=== PATIENT | female | born 1935 | race Caucasian/White ===

== ENCOUNTER 2017-10-25 19:09 | Inpatient (IN) | payer OTHER ==
[~2017-10-25 19:09] MED LIST: ATROPINE 1 MG/10 ML SYRINGE; CA CHLORIDE 10% 10 ML SYRINGE; DOPamine-D5W 1.6 MG/ML 250 ML; EPINEPHrine 0.1 MG/ML SYG; NA BICARBONATE 8.4% 50 ML SYG
[2017-10-25 19:35] LABS: ABNORMAL IP MESSAGE 1; HEMATOCRIT 44.7 % (37.0-47.0); HEMOGLOBIN 13.1 g/dl (12.0-16.0); MEAN CORPUSCULAR HEMOGLOBIN 29.8 pg (29.0-33.0); MEAN CORPUSCULAR HGB CONC 29.3 g/dl (32.0-37.0); MEAN CORPUSCULAR VOLUME 101.8 fl (82.0-101.0); MEAN PLATELET VOLUME 11.4 fl (7.4-10.4); NUCLEATED RED BLOOD CELLS% 0.8 /100WBC (0.0-0.0); PLATELET COUNT 110 10^3/UL (140-415); RED BLOOD COUNT 4.39 10^6/ul (4.20-5.40); RED CELL DISTRIBUTION WIDTH 14.9 % (11.5-14.5)
[2017-10-25 19:35] LABS: WHITE BLOOD COUNT 14.9 10^3/ul (4.8-10.8)
[2017-10-25 19:36] LABS: ADD MAN DIFF? YES; POSITIVE DIFF @See below
[2017-10-25] MEDS ORDERED: DOPamine-D5W 1.6 MG/ML 0 ML (19:48)
[2017-10-25] MEDS: PROPOFOL 100 ML IV (20:00)
[2017-10-25] MEDS: ACETAMINOPHEN 650 MG SUPP PR (20:00)
[2017-10-25] MEDS: SOD CHLORIDE 0.9% 1,000 ML IV ×3 (20:00→23:00)
[2017-10-25 20:03] LABS: ANISOCYTOSIS 2+ (0-0); BAND NEUTROPHILS #M 1.6 10^3/ul (0.0-0.6); BAND NEUTROPHILS % (M) 11 % (0-4); BURR CELLS 1+ (0-0); ERYTHROBLAST% (NRBC) (M) 1 % (0-0); GIANT THROMBO% (M) 3 % (0-0); LYMPHOCYTES #M 2.8 10^3/ul (0.8-2.9); LYMPHOCYTES % (M) 19 % (15-51); METAMYELOCYTES #M 0.4 10^3/ul (0.0-0.0); METAMYELOCYTES %M 3 % (0-0); MICROCYTOSIS 2+ (0-0); MONOCYTES % (M) 7 % (0-11); PLATELET ESTIMATE NORMAL; POIKILOCYTOSIS 2+ (0-0); POLYCHROMASIA 1+ (0-0); SEG NEUT #M 9.2 10^3/ul (1.6-7.5); SEGMENTED NEUTROPHILS (M) % 60 % (39-77); SMUDGE%M 6 % (0-0)
[2017-10-25] MEDS: DOPamine-D5W 1.6 MG/ML 250 ML IV (20:06)
[2017-10-25] MEDS: SODIUM CHLORIDE 0.9% 500 ML BAG IV* (20:15)
[2017-10-25 20:19] LABS: AADO2 Arterial 552.6 mmHg (7.0-24.0); Arterial Base Excess -13.5 mmol/L (-3.0-3); Arterial Blood Gas Oxygen Sat 97.2 mmHG (95.0-100.0); Arterial Fraction of Oxyhgb 95.7 % (93.0-99.0); Arterial MetHb 0.5 % (0.0-1.5); Arterial Total Hemglobin 13.6 g/dl (12.0-18.0); Arterial pCO2 38.5 mmhg (35-45); MODE VENT - AC; Site Right Brachial
[2017-10-25] MEDS ORDERED: NORepinephrine 8MG/250 ML (PMX 250 ML IV ×2 (20:19→20:30)
[2017-10-25 20:20] LABS: INR 2.18; PROTIME 24.8 Sec (11.9-14.9); PT RATIO 1.9
[2017-10-25 20:23] LABS: PARTIAL THROMBOPLASTIN TIME 86.2 Sec (25.0-35.0)
[2017-10-25 20:29] LABS: ALBUMIN 3.3 g/dl (3.3-4.9); ALBUMIN/GLOBULIN RATIO 1.13; ALKALINE PHOSPHATASE 118 IU/L (42-121); ANION GAP 35 (8-16); BILIRUBIN,INDIRECT 0.5 mg/dl (0-1.1); BILIRUBIN,TOTAL 0.5 mg/dl (0.2-1.3); BLOOD UREA NITROGEN 39 mg/dl (7-20); CALCIUM 9.5 mg/dl (8.4-10.2); CARBON DIOXIDE 19 mmol/L (21-31); CHLORIDE 96 mmol/L (97-110); CREATININE 1.69 mg/dl (0.44-1.00); GLUCOSE 100 mg/dl (70-220); MAGNESIUM 2.7 mg/dl (1.7-2.5); SODIUM 144 mmol/L (135-144); TOTAL PROTEIN 6.2 g/dl (6.1-8.1)
[2017-10-25] MEDS ORDERED: PROPOFOL 100 ML IV (20:30)
[2017-10-25] MEDS ORDERED: MEPERIDINE 25 MG INJ IV ×2 (20:30)
[2017-10-25] MEDS ORDERED: IPRATROPIUM (HFA) 12.9 GM INHALER INH (20:30)
[2017-10-25] MEDS ORDERED: ALBUTEROL HFA 8 GM INHALER INH (20:30)
[2017-10-25] MEDS ORDERED: VANCOMYCIN IV PER PHARMACY XX (20:30)
[2017-10-25] MEDS ORDERED: morphine 2 MG INJ IV (20:30)
[2017-10-25] MEDS ORDERED: ACETAMINOPHEN 650MG/20.3ML CUP PO ×2 (20:30)
[2017-10-25] MEDS: ACCU-CHEK XX ×4 (20:30→23:47)
[2017-10-25] MEDS ORDERED: LORAZEPAM 2 MG INJ IV (20:30)
[2017-10-25] MEDS ORDERED: ACETAMINOPHEN 650 MG SUPP PR ×2 (20:30)
[2017-10-25] MEDS: ASPIRIN 300 MG SUPP PR (20:30)
[2017-10-25] MEDS ORDERED: ONDANSETRON 4 MG INJ IV (20:30)
[2017-10-25] MEDS ORDERED: DEXTROSE 50% 50 ML SYRINGE IV ×2 (20:30)
[2017-10-25 20:33] LABS: POTASSIUM 6.2 mmol/L (3.5-5.1)
[2017-10-25 20:37] LABS: LACTIC ACID 18.5 mmol/L (0.5-2.0)
[2017-10-25 20:54] LABS: ALANINE AMINOTRANSFERASE 4261 IU/L (13-69); ASPARTATE AMINO TRANSFERASE > 7500 IU/L (15-46)
[2017-10-25 20:56] LABS: TROPONIN-I 0.134 ng/ml (0.00-0.12)
[2017-10-25] MEDS ORDERED: CEFEPIME 1GM/50 ML (PMX) 50 ML IVPB (21:00)
[2017-10-25] MEDS: VECURONIUM 100 MG in DEXTROSE 5% 100 ML IV (21:03)
[2017-10-25] MEDS: HYDROCORTISONE 100 MG INJ IV (21:52)
[2017-10-25] MEDS: VASOPRESSIN 60 UNIT in SOD CHLORIDE 0.9% 57 ML IV (21:53)
[2017-10-25] MEDS: CEFEPIME 1GM/50 ML (PMX) 50 ML IVPB (22:10)
[2017-10-25] MEDS: PHENYLephrine 20MG IN 250 ML 250 ML IV (22:37)
[2017-10-25] MEDS: AZITHROMYCIN 500MG/NS (PMX) 250 ML IVPB (23:00)
[2017-10-25] MEDS: CEFTRIAXONE 1 GM/50 ML (PMX) 50 ML IVPB (23:08)
[2017-10-25] MEDS: VANCOMYCIN 1 GM in 250 ML IVPB (23:16)
[2017-10-25 23:35] LABS: INR 2.86; PT RATIO 2.4
[2017-10-25 23:50] LABS: LACTIC ACID 19.1 mmol/L (0.5-2.0)
[2017-10-26] MEDS: DEXTROSE 5%-0.45% NACL 1,000 ML IV ×2 (00:14→07:52)
[2017-10-26 00:17] LABS: PROTIME 30.8 Sec (11.9-14.9)
[2017-10-26 00:20] LABS: PARTIAL THROMBOPLASTIN TIME 76.6 Sec (25.0-35.0)
[2017-10-26 00:28] LABS: ADD MAN DIFF? NO
[2017-10-26] MEDS: ACCU-CHEK XX ×9 (00:30→08:38)
[2017-10-26 00:32] LABS: ABNORMAL IP MESSAGE 1; BASOPHIL # 0.1 10^3/ul (0.0-0.1); BASOPHILS % 0.6 % (0.0-2.0); EOSINOPHILS % 0.3 % (0.0-7.0); HEMATOCRIT 41.8 % (37.0-47.0); HEMOGLOBIN 12.2 g/dl (12.0-16.0); LYMPHOCYTES # 1.7 10^3/ul (0.8-2.9); LYMPHOCYTES % 13.9 % (15.0-51.0); MEAN CORPUSCULAR HEMOGLOBIN 30.2 pg (29.0-33.0); MEAN CORPUSCULAR HGB CONC 29.2 g/dl (32.0-37.0); MEAN CORPUSCULAR VOLUME 103.5 fl (82.0-101.0); MONOCYTE # 0.6 10^3/ul (0.3-0.9); MONOCYTES % 4.7 % (0.0-11.0); NEUTROPHIL # 8.9 10^3/ul (1.6-7.5); NEUTROPHILS % 73.9 % (39.0-77.0); NUCLEATED RED BLOOD CELLS # 0.1 10^3/ul (0.0-0.0); PLATELET COUNT 58 10^3/UL (140-415); RED BLOOD COUNT 4.04 10^6/ul (4.20-5.40); RED CELL DISTRIBUTION WIDTH 14.6 % (11.5-14.5)
[2017-10-26 00:53] LABS: AMYLASE 267 U/L (11-123); ANION GAP 34 (8-16); BLOOD UREA NITROGEN 36 mg/dl (7-20); CALCIUM 7.7 mg/dl (8.4-10.2); CARBON DIOXIDE 12 mmol/L (21-31); CHLORIDE 99 mmol/L (97-110); CREATININE 1.63 mg/dl (0.44-1.00); GLUCOSE 126 mg/dl (70-220); LIPASE 196 U/L (23-300); MAGNESIUM 2.1 mg/dl (1.7-2.5); POTASSIUM 5.4 mmol/L (3.5-5.1); SODIUM 140 mmol/L (135-144)
[2017-10-26 00:55] LABS: INR 3.48; PT RATIO 2.8
[2017-10-26 01:01] LABS: POSITIVE DIFF @See below
[2017-10-26 01:04] LABS: LACTIC ACID 20.4 mmol/L (0.5-2.0)
[2017-10-26] MEDS: DOPamine-D5W 1.6 MG/ML 250 ML IV ×2 (01:22→05:56)
[2017-10-26] MEDS: PHENYLephrine 20MG IN 250 ML 250 ML IV ×5 (02:02→07:49)
[2017-10-26] MEDS: INSULIN HUMAN REGULAR 100 UNIT in SOD CHLORIDE 0.9% 99 ML IV ×2 (02:13→06:59)
[2017-10-26] MEDS ORDERED: NA BICARBONATE 8.4% 50 ML SYG (02:47)
[2017-10-26] MEDS: NA BICARBONATE 8.4% 50 ML SYG IV (03:22)
[2017-10-26] MEDS: SODIUM BICARBONATE (IV ADD) 100 MEQ in DEXTROSE 5% 900 ML IV (03:23)
[2017-10-26 03:47] LABS: PROTIME 36.1 Sec (11.9-14.9)
[2017-10-26 03:48] LABS: PARTIAL THROMBOPLASTIN TIME 86.1 Sec (25.0-35.0)
[2017-10-26] MEDS: ARTIFICIAL TEARS 15 ML OPH BOTH EYES ×2 (05:27)
[2017-10-26] MEDS: OCULAR LUBRICANT 3.5 GM OPH OINT BOTH EYES ×2 (05:27)
[2017-10-26] MEDS: PANTOPRAZOLE 40 MG INJ IV (05:51)
[2017-10-26 06:10] LABS: WHITE BLOOD COUNT 9.2 10^3/ul (4.8-10.8)
[2017-10-26 06:10] LABS: ABNORMAL IP MESSAGE 1; HEMATOCRIT 41.7 % (37.0-47.0); HEMOGLOBIN 11.9 g/dl (12.0-16.0); MEAN CORPUSCULAR HEMOGLOBIN 29.9 pg (29.0-33.0); MEAN CORPUSCULAR HGB CONC 28.5 g/dl (32.0-37.0); MEAN CORPUSCULAR VOLUME 104.8 fl (82.0-101.0); MEAN PLATELET VOLUME 11.2 fl (7.4-10.4); NUCLEATED RED BLOOD CELLS% 1.2 /100WBC (0.0-0.0); PLATELET COUNT 48 10^3/UL (140-415); RED BLOOD COUNT 3.98 10^6/ul (4.20-5.40); RED CELL DISTRIBUTION WIDTH 14.6 % (11.5-14.5)
[2017-10-26 06:14] LABS: POSITIVE DIFF @See below
[2017-10-26 06:15] LABS: ADD MAN DIFF? YES
[2017-10-26 06:32] LABS: AMYLASE 387 U/L (11-123); ANION GAP 36 (8-16); BLOOD UREA NITROGEN 35 mg/dl (7-20); CALCIUM 7.1 mg/dl (8.4-10.2); CARBON DIOXIDE 14 mmol/L (21-31); CHLORIDE 98 mmol/L (97-110); CREATININE 1.56 mg/dl (0.44-1.00); GLUCOSE 250 mg/dl (70-220); LIPASE 213 U/L (23-300); MAGNESIUM 1.8 mg/dl (1.7-2.5); PHOSPHORUS 9.2 mg/dl (2.5-4.9); POTASSIUM 4.7 mmol/L (3.5-5.1); SODIUM 143 mmol/L (135-144)
[2017-10-26 06:41] LABS: TROPONIN-I 0.715 ng/ml (0.00-0.12)
[2017-10-26 06:51] LABS: AADO2 Arterial 619.2 mmHg (7.0-24.0); Allen Test ACCEPTAB; Arterial Base Excess -23.2 mmol/L (-3.0-3); Arterial Blood Gas Oxygen Sat 93.4 mmHG (95.0-100.0); Arterial COHb 0.1 % (0.0-3.0); Arterial Fraction of Oxyhgb 92.7 % (93.0-99.0); Arterial HCO3 7.9 mmol/L (22.0-26.0); Arterial MetHb 0.6 % (0.0-1.5); Arterial Total Hemglobin 13.4 g/dl (12.0-18.0); Arterial pCO2 29.9 mmhg (35-45); MODE VENT - AC; Site Right Radial; Temperature 33.2 C
[2017-10-26 07:32] LABS: INR 4.37; PROTIME 43.3 Sec (11.9-14.9); PT RATIO 3.4
[2017-10-26 07:37] LABS: ACANTHOCYTES 1+ (0-0); ANISOCYTOSIS 1+ (0-0); BAND NEUTROPHILS #M 1.8 10^3/ul (0.0-0.6); BAND NEUTROPHILS % (M) 20 % (0-4); ERYTHROBLAST% (NRBC) (M) 3 % (0-0); GIANT THROMBO% (M) 11 % (0-0); LYMPHOCYTES #M 1.2 10^3/ul (0.8-2.9); LYMPHOCYTES % (M) 14 % (15-51); METAMYELOCYTES #M 0.1 10^3/ul (0.0-0.0); METAMYELOCYTES %M 2 % (0-0); MICROCYTOSIS 1+ (0-0); MONOCYTE #M 0.4 10^3/ul (0.3-0.9); MONOCYTES % (M) 5 % (0-11); MYELOCYTES #M 0.5 10^3/ul (0.0-0.0); MYELOCYTES % (M) 6 % (0-0); PLATELET ESTIMATE DECREASED; POIKILOCYTOSIS 1+ (0-0); SEGMENTED NEUTROPHILS (M) % 53 % (39-77); SMUDGE%M 4 % (0-0)
[2017-10-26 07:44] LABS: PARTIAL THROMBOPLASTIN TIME 70.3 Sec (25.0-35.0)
[2017-10-26 08:48] LABS: AADO2 Arterial 631.7 mmHg (7.0-24.0); Allen Test ACCEPTAB; Arterial Base Excess -20.5 mmol/L (-3.0-3); Arterial Blood Gas Oxygen Sat 90.4 mmHG (95.0-100.0); Arterial COHb 0 % (0.0-3.0); Arterial Fraction of Oxyhgb 90.1 % (93.0-99.0); Arterial HCO3 9.3 mmol/L (22.0-26.0); Arterial MetHb 0.3 % (0.0-1.5); Arterial Total Hemglobin 12.5 g/dl (12.0-18.0); MODE VENT - AC; Site Right Radial; Temperature 33.1 C
[2017-10-26] MEDS: NORepinephrine 32 MG in DEXTROSE 5% 218 ML IV (09:00)
[2017-10-26] MEDS: PHENYLephrine 160 MG in DEXTROSE 5% 484 ML IV (09:33)
[2017-10-26] MEDS: DOPamine 1,600 MG in DEXTROSE 5% 210 ML IV (10:04)
[2017-10-26] MEDS: morphine 2 MG INJ IV ×2 (11:48→12:15)
[2017-10-26] MEDS ORDERED: ACETAMINOPHEN 650MG/20.3ML CUP PO (20:30)
[2017-10-26] MEDS ORDERED: ACETAMINOPHEN 650 MG SUPP PR (20:30)
[2017-10-27] MEDS ORDERED: VANCOMYCIN 1 GM in 250 ML IVPB (11:00)
== END 2017-10-26 12:49 | disposition expired | DRG 871 ==
LOC: ICU 20:09 → E/R 19:09
PROC: 5A1935Z Respiratory Ventilation, Less than 24 Consecutive Hours (ICD-10-PCS; principal; 2017-10-25)
PROC: 0BH17EZ Insertion of Endotracheal Airway into Trachea, Via Natural or Artificial Opening (ICD-10-PCS; 2017-10-25)
PROC: 5A12012 Performance of Cardiac Output, Single, Manual (ICD-10-PCS; 2017-10-25)
PROC: 0YHH33Z Insertion of Infusion Device into Right Lower Leg, Percutaneous Approach (ICD-10-PCS; 2017-10-25)
DX: A41.9 Sepsis, unspecified organism (principal); J96.91 Respiratory failure, unspecified with hypoxia; J18.9 Pneumonia, unspecified organism; R65.21 Severe sepsis with septic shock; N17.9 Acute kidney failure, unspecified; E87.2 Acidosis; I46.9 Cardiac arrest, cause unspecified; I11.0 Hypertensive heart disease with heart failure; I50.9 Heart failure, unspecified; J44.9 Chronic obstructive pulmonary disease, unspecified; Z51.5 Encounter for palliative care; I48.91 Unspecified atrial fibrillation; E87.5 Hyperkalemia; D69.6 Thrombocytopenia, unspecified; E78.5 Hyperlipidemia, unspecified; R57.0 Cardiogenic shock
CPT/HCPCS: 31500; 36415; 36600; 71045; 74018; 80048; 80053; 82150; 82803; 82962; 83605; 83690; 83735; 84100; 84484; 85025; 85384; 85610; 85730; 87040; 87081; 87086; 92950; 93005; 93306; 94002; 94003; 94770; 96365; 96367; 96375; 99291-25